=== PATIENT | male | born 1940 | race Caucasian/White ===

== ENCOUNTER → 2016-05-16 | Outpatient (CLI) | payer MEDICARE ==
[~2016-05-16] MED LIST: AMLO5TAB96 PO; B-COTAB41 PO; CARV12.52 PO; CLOP75 PO; DEXI60CA3 PO; ECOT81TA2 PO; FURO20TA PO; LEVO.025 PO; LOSA50TA PO; METF-324 PO; SIMV40TA PO; SITA100 PO
--- NOTE | 2016-05-16 15:20 | RADRPT ---
EXAM DATE/TIME: 05/16/2016 13:48 [place] COMPARISON: CT PELVIS W/O CONTRAST, September 27, 2015, 10:48. CT PELVIS W/O CONTRAST, January 16, 2016, 14:21. INDICATIONS : Follow up soft tissue mass right pelvis ORAL CONTRAST: No oral contrast ingested. RADIATION DOSE: 26.37 CTDIvol (mGy) MEDICAL HISTORY : Hypertension. Diabetes mellitus type 1. Cardiovascular disease SURGICAL HISTORY : CABG lumbar laminectomy ENCOUNTER: Initial ACUITY: 1 yr PAIN SCALE: 5/10 LOCATION: Right pelvis TECHNIQUE: Volumetric scanning of the pelvis was performed. Using automated exposure control and adjustment of the mA and/or kV according to patient size, radiation dose was kept as low as reasonably achievable t o obtain optimal diagnostic quality images. FINDINGS: There is no significant change in the mass-like density along the lateral aspect of the right iliac b one. This measures 12.2 x 5.8 cm. There are scattered calcifications within this lesion. The adjac ent cortical surface of the iliac bone is thickened but unchanged and again suggests a chronic proces s. Continued imaging surveillance of this lesion is suggested if the patient refuses percutaneous bi opsy/drainage. No new pelvic lymphadenopathy is noted. The urinary bladder is unremarkable. No bowel obstruction i s noted. The abdominal aorta is calcified but it is not aneurysmally dilated. The inferior vena cav a is normal. Scattered unenlarged retroperitoneal lymph nodes are noted. There are persistent yusuf es posterior to the sacrum in the subcutaneous tissues which likely are related to sacral decubiti. CONCLUSION: 1. Stable mass-like lesion/collection along the posterior aspect of the right iliac bone measuring 12 .2 x 5.8 cm. Again this contains scattered calcifications and results in thickening of the adjacent cortex of the right iliac bone suggesting a chronic process. Continued imaging surveillance of this l esion is suggested if the patient still refuses percutaneous biopsy or drainage. 2. Stable subcutaneous changes posterior to the sacrum which likely are related to sacral decubiti. Patrick Tijerina MD on May 16, 2016 at 14:53 Board Certified Radiologist. This report was verified electronically.
== END ==
LOC: HRAD 12:58
PROVIDERS: ATTEND Family Medicine
DX: R19.03 Right lower quadrant abdominal swelling, mass and lump (principal)
CPT/HCPCS: 72192